=== PATIENT | male | born 1960 | race African-American/Black ===

== ENCOUNTER 2021-01-19 04:53 | Emergency (ER) | payer MEDICAID ==
[~2021-01-19] VITALS: Ht 165.1 cm; Wt 68.2 kg
--- NOTE | 2021-01-19 05:43 | PHYS DOC ---
General Adult EDM: Chief Complaint: LEFT FOOT PAIN HPI: HPI: Patient is a 60 year old MALE WHO PRESENTED WITH PAIN ON THE BOTTOM OF LEFT FOOT FOR 1.5 MONTH, HURT TO WALK ON THAT SPOT, NO INJURY. Review of Systems: Review of Systems: Constitutional: Denies fever or chills. [] Eyes: Denies change in visual acuity. [] HENT: Denies nasal congestion or sore throat. [] Respiratory: Denies cough or shortness of breath. [] Cardiovascular: Denies chest pain or edema. [] GI: Denies abdominal pain, nausea, vomiting, bloody stools or diarrhea. [] : Denies dysuria. [] Musculoskeletal: Denies back pain or joint pain. POSITIVE FOR TENDER SPOT ON BOTTOM OF LEFT FOOT. Integument: Denies rash. [] Neurologic: Denies headache, focal weakness or sensory changes. [] Endocrine: Denies polyuria or polydipsia. [] Lymphatic: Denies swollen glands. [] Psychiatric: Denies depression or anxiety. [] Heart Score: C/O Chest Pain: N/A Risk Factors: Risk Factors: DM, Current or recent (<one month) smoker, HTN, HLP, family history of CAD, obesity. Risk Scores: Score 0 - 3: 2.5% MACE over next 6 weeks - Discharge Home Score 4 - 6: 20.3% MACE over next 6 weeks - Admit for Clinical Observation Score 7 - 10: 72.7% MACE over next 6 weeks - Early Invasive Strategies Physical Exam: PE: Constitutional: Well developed, well nourished, no acute distress, non-toxic appearance. [] HENT: Normocephalic, atraumatic, bilateral external ears normal, oropharynx moist, no oral exudates, nose normal. [] Eyes: PERRLA, EOMI, conjunctiva normal, no discharge. [] Extremities: THERE IS A SMALL BLACK HARD TENDER CALLUS ON THE BOTTOM OF LEFT HEEL AREA, NO PURULENT DISCHARGE Neurologic: Alert and oriented X 3, normal motor function, normal sensory function, no focal deficits noted. [] Psychologic: Affect normal, judgement normal, mood normal. [] EKG: EKG: [] Radiology/Procedures: Radiology/Procedures: [] Course & Med Decision Making: Course & Med Decision Making Pertinent Labs and Imaging studies reviewed. (See chart for details) [] Dragon Disclaimer: Dragon Disclaimer: This electronic medical record was generated, in whole or in part, using a voice recognition dictation system. Departure Departure Impression: Primary Impression: Foot callus Disposition: HOME / SELF CARE / HOMELESS Condition: STABLE Referrals: BETTY SMITH DPTammy please call this foot doctor for follow up on Wednesday or Wednesday Patient Instructions: Corns and Calluses-[facility] Additional Instructions: Thank you for visiting our Emergency Department. We appreciate you trusting us with your care. If any additional problems come up don't hesitate to return to visit us. Please follow up with your primary care provider so they can plan additional care if needed and know about the problem that you had. If symptoms worsen come back to the Emergency Department. Any concerning symptoms that start such as chest pain, shortness of air, weakness or numbness on one side of the body, running high fevers or any other concerning symptoms return to the ER. ANGELO SIU DO Jan 19, 2021 05:43
[2021-01-19 05:45] VITALS: BP 153/85
== END 2021-01-19 05:52 | disposition home or self-care (01) ==
LOC: ER 04:53
DX: L84 Corns and callosities (principal)
CPT/HCPCS: 99282